=== PATIENT | female | born 1940 | race Caucasian/White ===

== ENCOUNTER 2018-04-06 07:09 | Day surgery (SDC) | payer OTHER ==
[2018-04-06] MEDS ORDERED: PROPOFOL 60 ML (08:58)
[2018-04-06] MEDS ORDERED: LIDOCAINE 100 MG SYRINGE (08:59)
== END 2018-04-06 15:11 | disposition home or self-care (01) ==
LOC: GIL 07:09
DX: R19.4 Change in bowel habit (principal); K64.8 Other hemorrhoids
CPT/HCPCS: 45378